=== PATIENT | male | born 1975 | race Caucasian/White ===

== ENCOUNTER 2016-09-24 16:01 | Outpatient (CLI) | payer OTHER ==
[~2016-09-24] VITALS: Ht 180.3 cm; Wt 144.2 kg
[~2016-09-24 16:01] MED LIST changes: -FLUO20CA42 PO; -OMEP40CA36 PO
[2016-09-24 16:09] VITALS: BP 154/91
[2016-09-24] MEDS ORDERED: DICL50TA6 PO (16:15)
[2016-09-24] MEDS ORDERED: OMEP40CA36 PO (16:15)
[2016-09-24] MEDS ORDERED: FLUO20CA42 PO (16:15)
[2016-09-24 16:38] LABS: BILIRUBIN,URINE NEGATIVE (NEGATIVE); KETONES,URINE NEGATIVE (NEGATIVE); LEUKOCYTE ESTERASE ,URINE 1+ (NEGATIVE); NITRITE,URINE NEGATIVE (NEGATIVE); PH,URINE 5 (5-9); PROTEIN,URINE NEGATIVE (NEGATIVE); UROBILINOGEN,URINE NORMAL (NORMAL)
[2016-09-24 16:38] LABS: BASOPHILS % (AUTO) 0 % (0-10); EOSINOPHILS # (AUTO) 0.2 10^3/uL (0.0-0.3); EOSINOPHILS % (AUTO) 2 % (0-10); LYMPHOCYTES # (AUTO) 1.7 X 10^3 (1.0-4.0); LYMPHOCYTES % (AUTO) 22 % (12-44); MEAN CORPUSCULAR HEMOGLOBIN 30 PG (25-34); MEAN CORPUSCULAR HGB CONC 35 G/DL (32-36); MEAN CORPUSCULAR VOLUME 85 FL (80-99); MEAN PLATELET VOLUME 10.2 FL (7.4-10.4); MONOCYTES # (AUTO) 0.7 X 10^3 (0.0-1.0); MONOCYTES % (AUTO) 9 % (0-12); NEUTROPHILS # (AUTO) 5.1 X 10^3 (1.8-7.8); NEUTROPHILS % (AUTO) 67 % (42-75); PLATELET COUNT 232 10^3/uL (130-400); RED BLOOD COUNT 5.11 10^6/uL (4.35-5.85); RED CELL DISTRIBUTION WIDTH 13.1 % (10.0-14.5); WHITE BLOOD COUNT 7.6 10^3/uL (4.3-11.0)
[2016-09-24 16:44] LABS: WBC,URINE 0-2 /HPF
[2016-09-24 16:54] LABS: ANION GAP 10 MMOL/L (5-14); BLOOD UREA NITROGEN 15 MG/DL (7-18); BUN/CREATININE RATIO 16; CALCIUM 8.8 MG/DL (8.5-10.1); CARBON DIOXIDE 23 MMOL/L (21-32); CHLORIDE 108 MMOL/L (98-107); CREATININE SERUM 0.95 MG/DL (0.60-1.30); GFR ESTIMATED > 60; GLUCOSE 118 MG/DL (70-105); PHOSPHORUS 3.7 MG/DL (2.3-4.7); POTASSIUM 3.9 MMOL/L (3.6-5.0); SODIUM 141 MMOL/L (135-145); URIC ACID 5.5 MG/DL (2.6-7.2)
[2016-09-26 08:45] LABS: CALCIUM PARA THYROID HORMONE 8.9 mg/dL (8.5-10.5)
== END 2016-09-24 16:30 | disposition home or self-care (01) ==
LOC: PREOP 16:01
PROVIDERS: ATTEND Urology
DX: Z01.812 Encounter for preprocedural laboratory examination (principal); Z11.2 Encounter for screening for other bacterial diseases; N20.2 Calculus of kidney with calculus of ureter
CPT/HCPCS: 36415; 80048; 81000; 83970; 84100; 84550; 85025; 87081

== ENCOUNTER → 2016-09-24 | Outpatient (CLI) | payer OTHER ==
[~2016-09-24] MED LIST: CALC-794 PO; CHOL200025 PO; DICL50TA6 PO; FLUO20CA42 PO; HYDR-3730 PO; LYSI500T PO; MULT-301 PO; OMEP40CA36 PO
--- NOTE | 2016-09-24 15:16 | Diagnostic Imaging Report ---
INDICATION: Left ureteral calculus. EXAM: KUB FINDINGS: There are no prior studies available for comparison. The gallbladder appears surgically absent. There are radiopaque tablets in the GI tract. There is a moderate amount of stool. Renal or ureteral calculi cannot be confirmed from the 2 submitted images. IMPRESSION: No radiographic evidence for nephroureterolithiasis. Dictated by: Dictated on workstation # [id number]
== END ==
LOC: RAD 12:32
PROVIDERS: ATTEND Urology
DX: N20.1 Calculus of ureter (principal)
CPT/HCPCS: 74000

== ENCOUNTER 2016-09-25 09:23 | Day surgery (SDC) | payer OTHER ==
[~2016-09-25] VITALS: Ht 180.3 cm; Wt 144.2 kg
[~2016-09-25 09:23] MED LIST changes: +FLUO20CA42 PO; +OMEP40CA36 PO
[2016-09-25] MEDS ORDERED: CATHETER FLUSH 10 ML SYR IV PRN (09:45)
[2016-09-25] MEDS ORDERED: cefTRIAXone 1 GM/NS 50 ML IVPB IV ONE ×2 (09:45)
--- NOTE | 2016-09-25 10:03 | Progress Note-Pre Operative ---
Pre-Operative Progress Note H&P Reviewed The H&P was reviewed, patient examined and no changes noted. Date H&P Reviewed: September 25, 2016 Time H&P Reviewed: 10:03 Pre-Operative Diagnosis: LT URETERAL STONE JERARDO ADAMS MD September 25, 2016 10:03 am
--- NOTE | 2016-09-25 10:04 | Progress Note-Post Operative ---
Post-Operative Progess Note Surgeon (s)/Housing Development Specialist (s) Surgeon JERARDO ADAMS MD Housing Development Specialist: N/A Pre-Operative Diagnosis LT URETERAL STONE Post-Operative Diagnosis SAME Procedure & Operative Findings Date of Procedure 09/25/16 Procedure Preformed/Findings cysto and extraction of lt ureteral stone Anesthesia Type GENERAL Estimated Blood Loss Estimated blood loss (mL): N/A Specimens/Packing Specimens Removed N/A Packing: N/A JERARDO ADAMS MD September 25, 2016 10:04 am
[2016-09-25 10:05] VITALS: BP 172/94
--- NOTE | 2016-09-25 10:05 | Discharge Inst-Urology ---
Discharge Inst-Urology Patient Instructions/Follow Up Plan Please make appointment to been seen in office in 2 weeks. Increase oral fluids for 48 hours and then as needed. Diet and Activity as tolerated. If questions or concerns contact your physician Or seek help at emergency department. JERARDO ADAMS MD September 25, 2016 10:05 am
--- NOTE | 2016-09-25 10:24 | Diagnostic Imaging Report ---
INDICATION: Left ureteral and renal calculi. FINDINGS: A single view of the abdomen reveals radiopaque pills projecting over the hepatic flexure and transverse colon with an additional probable pill projecting over the descending colon in the left lower quadrant. There are faint calcifications projecting over the inferior pole of the left kidney with an approximately 0.3 cm calcification to the left of the midline in the pelvis which could reside within the distal ureter. There is a moderate amount of colonic stool. No other significant change is seen. IMPRESSION: Faint calcifications projecting over the lower pole of the left kidney with a 0.3 cm calcification in the left hemipelvis, possibly residing within the distal left ureter. Dictated by: Dictated on workstation # [id number]
[2016-09-25] MEDS ORDERED: LACTATED RINGERS 1,000 ML IV PRN (10:38)
[2016-09-25] MEDS ORDERED: FAMOTIDINE 20MG/2ML IV (PEPCID) IV ONE (10:45)
[2016-09-25] MEDS ORDERED: LACTATED RINGERS 1,000 ML IV ONE (11:25)
[2016-09-25] MEDS ORDERED: MIDAZOLAM 2 MG/2 ML (VERSED) VIAL ONE (11:25)
[2016-09-25] MEDS ORDERED: ROCURONIUM 50 MG/5 ML (ZEMURON) VIAL IV ONE (11:25)
[2016-09-25] MEDS ORDERED: proPOfol 200 MG/20 ML (DIPRIVAN) VIAL IV ONE (11:25)
[2016-09-25] MEDS ORDERED: LIDOCAINE PF 2% 10 ML (XYLOCAINE) AMP ONE (11:25)
[2016-09-25] MEDS ORDERED: ONDANSETRON 4 MG/2 ML (SDV) Z0FRAN ONE (11:25)
[2016-09-25] MEDS ORDERED: fentaNYL INJECTION 100 MCG/2 ML AMP ONE (11:25)
[2016-09-25] MEDS ORDERED: ONDANSETRON 4 MG/2 ML (SDV) Z0FRAN IVP PRN (12:30)
[2016-09-25] MEDS ORDERED: morphine INJ 10 MG/ML 1ML (SYR OR VIAL) IVP PRN (12:30)
[2016-09-25] MEDS ORDERED: MEPERIDINE (DEMEROL) INJ 50 MG/ML IVP PRN (12:30)
[2016-09-25 13:10] VITALS: BP 136/85
--- NOTE | 2016-09-25 13:23 | OPERATIVE REPORT ---
DATE OF SERVICE: 09/25/2016 PREOPERATIVE DIAGNOSIS: Left distdal urethral stone. POSTOPERATIVE DIAGNOSIS: Left distdal ureterall stone. PROCEDURE PERFORMED: Cystoscopy and extraction of left ureteral stone. SURGEON: Dr. Adams. ANESTHESIA: General. COMPLICATIONS: None. PROCEDURE: Under satisfactory general anesthesia with the patient in lithotomy position, genitalia prepped and draped in the usual sterile fashion. Cystoscope was introduced under direct vision. The anterior urethra was normal. The prostate was not obstructive. The bladder neck was open. Visualized the stone protruding long-term through the left urethral orifice. I went ahead and grasped it with grasping forceps and extracted completely. It was sent to be analyzed. There was good efflux from the left ureter. I passed the ureteral catheter all of the way up to the left renal pelvis with no problem and no resistance. The bladder was evacuated. The cystoscope was removed. The patient tolerated the procedure and anesthesia well, was sent to recovery room in stable condition. Job ID: [id number] DocumentID: [id number] Dictated Date: 09/25/2016 12:44:20 Social Service Technician Date: 09/25/2016 13:22:52 Dictated By: JERARDO ADAMS MD
[2016-09-25 13:40] VITALS: BP 158/97
[2016-09-25 14:10] VITALS: BP 155/95
== END 2016-09-25 14:10 | disposition home or self-care (01) ==
LOC: SDC 09:23
PROVIDERS: ATTEND Urology
DX: N20.1 Calculus of ureter (principal); E78.5 Hyperlipidemia, unspecified; K21.9 Gastro-esophageal reflux disease without esophagitis; Z79.899 Other long term (current) drug therapy
CPT/HCPCS: 74000; 88300